=== PATIENT | male | born 1995 | race Caucasian/White ===

== ENCOUNTER → 2016-08-23 | Day surgery (SDC) | payer OTHER, BC ==
[2016-07-28 14:24] VITALS: Ht 182.9 cm; Wt 109.1 kg
[~2016-08-23] VITALS: Ht 182.9 cm; Wt 109.1 kg
[~2016-08-23] MED LIST: FENTANYL CITRATE INJ 50 MCG/1 ML 2 ML VIAL ONE; MIDAZOLAM HCL 5 MG/ML 1 ML VIAL ONE; SODIUM CHLORIDE 0.9% 500ML 500 ML IV ONE; VALA500T60 PO
--- NOTE | 2016-08-23 15:08 | Endo History and Physical ---
History & Physical Date of Service: Aug 23, 2016. Chief Complaint: Change in bowel habits Referring Physician: [facility] History of Present Illness 21 yo CM who presents for colonoscopy secondary to change in bowel habits. Past Surgical History Hx Cardiac Surgery: No Hx Internal Defibrillator: No Hx Pacemaker: No Hx Abdominal Surgery: No Hx of Implantable Prosthesis: No Hx Post-Op Nausea and Vomiting: No Hx Cancer Surgery: No Hx Thoracic Surgery: No Hx Orthopedic: No Hx Urinary Tract Surgery: No Family History None Social History Smoking Status: Current Some Day Smoker Hx Substance Use: Yes (MARIJUANA OCCASIONALLY) Hx Alcohol Use: Yes (OCCASIONALLY) Allergies Coded Allergies: NO KNOWN DRUG ALLERGIES (Verified Allergy, Unknown, ., 07/28/16) Current Medications Reported Home Medications Medications Dose Route/Sig Max Daily Dose Days Date Category Valtrex (Valacyclovir HCl) 500 Mg Tab 500 Mg PO BID 08/23/16 Reported Vital Signs Weight (Kilograms): 109.09 Height (Feet): 6 Height (Inches): 0 Date Time Temp Pulse Resp B/P Pulse Ox O2 Delivery O2 Flow Rate FiO2 08/23/16 14:49 36.8 79 18 164/90 99 Room Air Physical Exam General Appearance: WD/WN, no apparent distress Respiratory/Chest: Auscultation: breath sounds normal Cardiovascular: Heart Auscultation: RRR Abdomen: Bowel Sounds: normal Inspection & Palpation: soft, non-distended, no tenderness, guarding & rebound Assessment and Plan Assessment: 21 yo CM who presents for colonoscopy secondary to change in bowel habits. Plan: Proceed with colonoscopy.
--- NOTE | 2016-08-23 16:16 | Discharge Instructions ---
Endoscopy Patient Instructions Date / Procedure(s) Performed Aug 23, 2016. Colonoscopy Allergy Information Coded Allergies: NO KNOWN DRUG ALLERGIES (Verified Allergy, Unknown, ., 08/23/16) Discharge Date / Findings Aug 23, 2016. Rectal polyp Random colon biopsies Medication Instructions OK to resume all medications today as prescribed Reported Home Medications Medications Dose Route/Sig Max Daily Dose Days Date Category Valtrex (Valacyclovir HCl) 500 Mg Tab 500 Mg PO BID 08/23/16 Reported Provider Instructions Activity Restrictions - No exercising or heavy lifting for 24 hours. - Do not drink alcohol the day of the procedure. - Do not drive a car or operate machinery until the day after the procedure. - Do not make any important decisions or sign important papers in 24 hours after the procedure. Following Day: - Return to full activity which may include returning to work/school. Diet Start your diet with liquids and light foods (jello, soup, juice, toast). Then eat your usual diet if not nauseated. Treatment For Common After Affects For mild abdominal pain, bloating, or excessive gas: - Rest - Eat lightly - Lie on right side Follow-Up Information Follow-up with [facility] as scheduled Anesthesia Information What You Should Know You have had a procedure that required some medicine to reduce anxiety and discomfort. This treatment is called moderate sedation. After receiving the treatment, you may be sleepy, but you will be able to breathe on your own. The effects of the treatment may last for several hours. Follow these instructions along with Activity/Diet recommendations noted above: * Do NOT do anything where dizziness or clumsiness would be dangerous. * Rest quietly at home today, then you can be up and about tomorrow. * Have a responsible person stay with you the rest of today. * You may have had an I.V. today. If so, you may take the dressing off later today. Recommendations Call your doctor if: * Trouble breathing * Continuous vomiting for more than 24 hours * Temperature above 101 degrees * Severe abdominal pain or bloating * Pain not relieved by pain medicine ordered * There is increased drainage or redness from any incision * A large amount of rectal bleeding greater than 2-3 tablespoons. (If you had a polyp/s removed or have hemorrhoids, a small amount of blood - from the rectum is to be expected.) * You have any unanswered questions or concerns. IN THE EVENT OF A SERIOUS EMERGENCY, GO TO THE NEAREST EMERGENCY ROOM Your discharge instructions were prepared by provider Abdirashid Manning. Patient Instructions Signature Page Markus Wiggins Patient (or Guardian) Signature/Date: I have read and understand the instructions given to me by my caregivers. Caregiver/RN/Doctor Signature/Date: The above-named patient and/or guardian has received patient instructions on this date. + Original Patient Signature Page (only) stays with chart. Please make copy for patient.
--- NOTE | 2016-08-23 16:21 | GI REPORT ---
Procedure Date: 08/23/2016 3:27 PM Procedure: Colonoscopy Indications: Change in bowel habits Medicines: Fentanyl 100 micrograms IV, Midazolam 6 mg IV Complications: No immediate complications. Estimated Blood Loss: Estimated blood loss: none. Procedure: Pre-Anesthesia Assessment: - Prior to the procedure, a History and Physical was performed, and patient medications and allergies were reviewed. The patient's tolerance of previous anesthesia was also reviewed. The risks and benefits of the procedure and the sedation options and risks were discussed with the patient. All questions were answered, and informed consent was obtained. Prior Anticoagulants: The patient has taken no previous anticoagulant or antiplatelet agents. ASA Grade Assessment: II - A patient with mild systemic disease. After reviewing the risks and benefits, the patient was deemed in satisfactory condition to undergo the procedure. After I obtained informed consent, the scope was passed under direct vision. Throughout the procedure, the patient's blood pressure, pulse, and oxygen saturations were monitored continuously. The scope was introduced through the anus and advanced to the terminal ileum. The colonoscopy was performed without difficulty. The patient tolerated the procedure well. The quality of the bowel preparation was good. The terminal ileum, ileocecal valve, appendiceal orifice, and rectum were photographed. Findings: A 4 mm polyp was found in the rectum. The polyp was sessile. The polyp was removed with a cold snare. Resection and retrieval were complete. Several random biopsies were obtained with cold forceps for histology in the entire colon. Impression: - One 4 mm polyp in the rectum, removed with a cold snare. Resected and retrieved. - Several random biopsies were obtained in the entire colon. Recommendation: - Resume previous diet. - Continue present medications. - Repeat colonoscopy for surveillance based on pathology results. - Return to primary care physician as previously scheduled. Abdirashid Manning DO 08/23/2016 4:20:47 PM This report has been signed electronically. Note Initiated On: 08/23/2016 3:27 PM I attest to the content of the Intraoperative Record and orders documented therein, exceptions below
[2016-08-23 16:36] VITALS: BP 144/87; PULSE 73; O2SAT 95
== END | disposition home or self-care (01) ==
LOC: C.GI 14:35
PROVIDERS: ATTEND Internal Medicine
DX: K62.1 Rectal polyp (principal); F17.210 Nicotine dependence, cigarettes, uncomplicated; F12.90 Cannabis use, unspecified, uncomplicated; Z79.899 Other long term (current) drug therapy; R19.4 Change in bowel habit

== ENCOUNTER 2017-07-04 10:00 | Emergency (ER) | payer OTHER ==
[~2017-07-04] VITALS: Ht 182.9 cm; Wt 102.0 kg
[~2017-07-04 10:00] MED LIST changes: -FENTANYL CITRATE INJ 50 MCG/1 ML 2 ML VIAL ONE; -MIDAZOLAM HCL 5 MG/ML 1 ML VIAL ONE; -SODIUM CHLORIDE 0.9% 500ML 500 ML IV ONE
[2017-07-04 10:02] VITALS: Ht 182.9 cm; Wt 102.0 kg
[2017-07-04 10:26] VITALS: O2SAT 96
[2017-07-04] MEDS ORDERED: ACETAMINOPHEN 325 MG TAB PO STA (10:49)
[2017-07-04] MEDS ORDERED: SODIUM CHLORIDE 0.9% 1000ML 1,000 ML IV STA ×2 (10:49→13:56)
--- NOTE | 2017-07-04 11:09 | EMERGENCY ROOM VISIT NOTE ---
History Report prepared by [place]: Jaleel Lu Under the Supervision of: Dr. Fannie Farnswotrh M.D. First contact with patient: 10:18 Chief Complaint: FLU LIKE SX Stated Complaint: FLU,FEVER, NECK PAIN, TIGHTNESS IN CHEST History of Present Illness The patient is a 22 year old male who presents to the Emergency Room with complaints of intermittent flu like symptoms for the past 3 weeks. The patient states that for three weeks he is having intermittent shortness of breath when he wakes up as well as chest tightness as well as a pulse rate, and he states that it feels like a panic attack. He also notes that he has been having cyclical fevers, and it was 102 three weeks ago, and it was 100.9 this morning. A week ago he was diagnosed with the flu, and he was put on Tamiflu. He also notes that he had a chest x-ray and an EKG which were both normal. The patient reports that he had an abscess a few days ago, and he was put on doxycycline and Bactroban, and it was not drained. He states that he has been having some neck pain that does into his shoulder for the past two days, and at urgent care he was told that it was a neck spasm. The patient states that this morning he woke up with a fever of 100.9, short of breath, heart racing, and some chest pain with deep inspiration. He also notes that he vomited this morning, though he has been able to eat food afterwards. The patient states that he drove to [place] in June though no other travel, he has no family history of blood clots, and he does not take any hormones. The patient denies any urinary symptoms, diarrhea, rashes, runny nose, sore throat, ear pain, headache, numbness, and tingling. The patient currently states that he has been under a lot of stress recently with graduate school, and he notes that he is going to try to see a psychiatrist. He also reports that he has been having eye lid twitching for the past month. Source of History: patient Onset: 3 weeks Position: other (global) Quality: other (flu like symptoms) Timing: intermittent Associated Symptoms: + fevers, + neck pain, + chest pain, + SOB, + vomiting , No headache, No sorethroat, No diarrhea, No urinary symptoms, No numbness, No rash Review of Systems See HPI for pertinent positives & negatives. A total of 10 systems reviewed and were otherwise negative. Past Medical & Surgical Medical Problems: (1) High cholesterol Social History Smoking Status: Current Some Day Smoker Marital Status: single Occupation Status: [employer] student Current/Historical Medications Scheduled Cefdinir (Omnicef), 300 MG PO Q12H Doxycycline (Monohydrate) (Doxycycline), 1 CAP PO BID Mupirocin (Bactroban 2% Oint), 1 APPLN EXT UD Scheduled PRN Cyclobenzaprine Hcl (Flexeril), 10 MG PO TID PRN for Muscle Spasms Allergies Coded Allergies: NO KNOWN DRUG ALLERGIES (Verified Allergy, Unknown, ., 07/04/17) Physical Exam Vital Signs Date Time Temp Pulse Resp B/P (MAP) Pulse Ox O2 Delivery O2 Flow Rate FiO2 07/04/17 15:45 104 18 114/65 94 07/04/17 14:52 104 18 133/81 97 Room Air 07/04/17 14:07 109 07/04/17 12:30 37.6 109 20 106/78 98 Room Air 07/04/17 11:35 115 20 115/83 93 Room Air 07/04/17 10:26 96 Room Air 07/04/17 10:21 136 07/04/17 10:17 38.6 130 18 133/84 96 Room Air 07/04/17 10:02 37.3 157 16 142/90 95 Room Air Physical Exam Vital signs reviewed. General: Well-appearing male, in no significant distress. Noted to be febrile and tachycardic. HEENT: No scleral icterus, PERRLA, neck has slight discomfort with forward flexion of the neck. No clear meningismus. Atraumatic. Cardiovascular: tachycardic rate and regular rhythm, no extra sounds. Pulmonary: Clear to auscultation bilaterally, normal work of breathing. Abdomen: Mildly obese, non-tender. Musculoskeletal: Atraumatic, no peripheral edema. Neurologic: Patient awake alert and oriented x 3, full strength in all 4 extremities. Cranial nerves 2 through 12 grossly intact. Skin: Warm, dry, no rash Medical Decision & Procedures ER Provider Diagnostic Interpretation: Radiology results as stated below per my review and radiologist interpretation: CHEST 2 VIEWS ROUTINE CLINICAL HISTORY: Cough. Possible pneumonia COMPARISON STUDY: No previous studies for comparison. FINDINGS: The cardiac and mediastinal contours are normal. There is no evidence of focal pulmonary consolidation. There is no evidence of failure. No pleural effusions are visualized.[ IMPRESSION: No active disease in the chest. Electronically signed by: Adalberto Faust M.D. 07/04/2017 12:25 PM Dictated Date/Time: 07/04/2017 12:[address] SCAN OF THE BRAIN WITHOUT IV CONTRAST CLINICAL HISTORY: Headache. COMPARISON STUDY: No priors. TECHNIQUE: Unenhanced axial CT scan of the brain is performed from the vertex to the skull base. A dose lowering technique was utilized adhering to the principles of ALARA. CT DOSE: 537.48 mGy.cm FINDINGS: Brain parenchyma: The brain parenchyma is normal in appearance. There is no hemorrhage, mass effect, or evidence of acute territorial ischemia by CT criteria. Bernardo-white matter is preserved. No extra-axial fluid collection is seen. Ventricles, sulci, cisterns: Normal in configuration. Intracranial vasculature: The visualized intracranial vasculature at the skull base is normal in appearance. Calvarium: Unremarkable. Sinuses and mastoids: There is a tiny retention cyst in the right maxillary antrum. The visualized paranasal sinuses are clear. The mastoid air cells are well pneumatized. Orbits: The bony orbits are grossly intact. IMPRESSION: No acute intracranial abnormality. Electronically signed by: Jasen Cm M.D. 07/04/2017 1:13 PM Dictated Date/Time: 07/04/2017 1:[address] WITH CONTRAST CT DOSE: 665.43 mGycm HISTORY: Acute fever with tachycardia and leukocytosis fever, tachycardia, WBC TECHNIQUE: Multiaxial CT images of the chest were performed following the intravenous administration of contrast. A dose lowering technique was utilized adhering to the principles of ALARA. COMPARISON: Chest radiograph 07/04/2017. FINDINGS: Thyroid appears homogeneous. No pathologic adenopathy of the chest. Prominent 9 mm subcarinal lymph node is present. Residual thymic tissue of the anterior mediastinum. Heart is normal size without pericardial effusion. Thoracic aorta is normal in course and caliber without aneurysm or dissection. 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 The imaged great vessels appear to be patent. The opacified pulmonary arterial tree is unremarkable. There is no pneumothorax, pleural effusion or focal airspace consolidation. Ill-defined groundglass opacity of the superior segment left lower lobe suggest atelectasis. No suspicious pulmonary nodules or masses. 5 mm. Fissural lymph node is seen adjacent to the right middle lobe. Central airways are patent. Spleen is mildly enlarged, 14 cm in length which is only partially imaged. Mild bilateral gynecomastia. Bones appear intact. IMPRESSION: 1. No acute intrathoracic abnormality identified. No lobar airspace consolidation to suggest pneumonia. 2. Mildly prominent nonenlarged AP window and subcarinal lymph nodes may be reactive. 3. Mild splenomegaly. Electronically signed by: Chad Blank M.D. 07/04/2017 2:43 PM Dictated Date/Time: 07/04/2017 2:38 PM Laboratory Results 07/04/17 11:05 Red Blood Count 5.42, Mean Corpuscular Volume 80.4, Mean Corpuscular Hemoglobin 28.8, Mean Corpuscular Hemoglobin Concent 35.8, Mean Platelet Volume 10.1, Neutrophils (%) (Auto) 87.8, Lymphocytes (%) (Auto) 4.4, Monocytes (%) (Auto) 6.6, Eosinophils (%) (Auto) 0.1, Basophils (%) (Auto) 0.2, Neutrophils # (Auto) 19.54, Lymphocytes # (Auto) 0.97, Monocytes # (Auto) 1.46, Eosinophils # (Auto) 0.02, Basophils # (Auto) 0.04 07/04/17 11:05 Test 07/04/17 11:05 07/04/17 11:23 07/04/17 13:25 07/04/17 13:45 White Blood Count 22.24 K/uL (4.8-10.8) Red Blood Count 5.42 M/uL (4.7-6.1) Hemoglobin 15.6 g/dL (14.0-18.0) Hematocrit 43.6 % (42-52) Mean Corpuscular Volume 80.4 fL (80-100) Mean Corpuscular Hemoglobin 28.8 pg (25-34) Mean Corpuscular Hemoglobin Concent 35.8 g/dl (32-36) Platelet Count 325 K/uL (130-400) Mean Platelet Volume 10.1 fL (7.4-10.4) Neutrophils (%) (Auto) 87.8 % Lymphocytes (%) (Auto) 4.4 % Monocytes (%) (Auto) 6.6 % Eosinophils (%) (Auto) 0.1 % Basophils (%) (Auto) 0.2 % Neutrophils # (Auto) 19.54 K/uL (1.4-6.5) Lymphocytes # (Auto) 0.97 K/uL (1.2-3.4) Monocytes # (Auto) 1.46 K/uL (0.11-0.59) Eosinophils # (Auto) 0.02 K/uL (0-0.5) Basophils # (Auto) 0.04 K/uL (0-0.2) RDW Standard Deviation 37.7 fL (36.4-46.3) RDW Coefficient of Variation 13.0 % (11.5-14.5) Immature Granulocyte % (Auto) 0.9 % Immature Granulocyte # (Auto) 0.21 K/uL (0.00-0.02) Anion Gap 7.0 mmol/L (3-11) Est Creatinine Clear Calc Drug Dose 116.4 ml/min Estimated GFR () 96.3 Estimated GFR (Non- 83.1 BUN/Creatinine Ratio 11.3 (10-20) Calcium Level 9.8 mg/dl (8.5-10.1) Total Bilirubin 0.8 mg/dl (0.2-1) Direct Bilirubin 0.1 mg/dl (0-0.2) Aspartate Amino Transf (AST/SGOT) 16 U/L (15-37) Alanine Aminotransferase (ALT/SGPT) 33 U/L (12-78) Alkaline Phosphatase 70 U/L (45-117) Total Protein 8.0 gm/dl (6.4-8.2) Albumin 4.5 gm/dl (3.4-5.0) Bedside D-Dimer 182 ng/mlFEU (0-450) Bedside Troponin I < 0.030 ng/ml (0-0.045) Lyme Disease IgG Antibody NEG (NEG) Lyme Disease IgM Antibody NEG (NEG) Monoscreen NEG (NEG) CSF Color COLORLESS CSF Appearance CLEAR CSF WBC 0 /uL (0-5) CSF RBC 1 /uL (0) CSF Xanthrochromic NO XANTHOCHROMIA CSF Cell Count Tube # 4 CSF Chemistry Tube # 2 CSF Glucose 59 mg/dl (40-70) CSF Total Protein 49.6 mg/dl (15.0-45.0) Test 07/04/17 14:22 Urine Color YELLOW Urine Appearance CLEAR (CLEAR) Urine pH 5.5 (4.5-7.5) Urine Specific [place] 1.012 (1.000-1.030) Urine Protein NEG (NEG) Urine Glucose (UA) NEG (NEG) Urine Ketones NEG (NEG) Urine Occult Blood NEG (NEG) Urine Nitrite NEG (NEG) Urine Bilirubin NEG (NEG) Urine Urobilinogen NEG (NEG) Urine Leukocyte Esterase NEG (NEG) Laboratory results per my review. Medications Administered Medications (Trade) Dose Ordered Sig/Sharon Route Start Time Stop Time Status Last Admin Dose Admin Sodium Chloride 1,000 ml @ 999 mls/hr Q1H1M STAT IV 07/04/17 10:49 07/04/17 11:49 DC 07/04/17 10:49 999 MLS/HR Acetaminophen (Tylenol Tab) 650 mg NOW STAT PO 07/04/17 10:49 07/04/17 10:52 DC 07/04/17 11:33 650 MG Sodium Chloride 1,000 ml @ 999 mls/hr Q1H1M STAT IV 07/04/17 13:56 07/04/17 14:56 DC 07/04/17 13:56 999 MLS/HR Ceftriaxone Sodium (Rocephin Inj) 1 gm NOW STAT IV 07/04/17 14:46 07/04/17 14:47 DC 07/04/17 14:46 1 GM Procedure Lumbar Puncture Indication: fever and neck pain. Verbal consent was obtained after the risks and benefits were explained, including but not limited to headache, bleeding/clotting, scarring, infection, pain, and bone/joint/nerve damage. At this time, the risks of the procedure are less than the risks of NOT performing the procedure. A time out was taken and the correct patient and site identified. The patient was placed in the left lateral decubitus position and the back was prepped with betadine and draped in the standard fashion. The L3 intervertebral space was identified, anesthetized locally with 1% lidocaine without epinephrine, and the spinal needle was inserted through the skin with the bevel parallel to the dural fibers. The needle was carefully advanced into the lumbar cistern and 4 tubes of clear CSF was obtained. The stylet was replaced and the needle was removed. A bandaid was placed and the patient was placed in the supine position. The patient tolerated the procedure well and there were no complications. 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 The patient was evaluated in room B9. A complete history and physical examination was performed. 1049: Tylenol 650mg PO, Sodium Chloride 1000 ml @ 999 mls/hr IV 1356: Sodium Chloride 1000 ml @ 999 mls/hr IV 1406: I reevaluated the patient, and I performed a lumbar puncture as described above. 1413: Toradol 30mg IV 1446: Rocephin 1gm IV 1456: Upon reevaluation, the patient appeared to have improvement of his symptoms. I discussed findings with him. He verbalized agreement of the treatment plan. He was discharged home. Medical Decision Differential Diagnoses: PE, Influenza, other viral illness, pneumonia, urinary tract infection, metabolic abnormality, medication effect, cellulitis, meningitis, intra- abdominal source. This patient was evaluated and appeared to be in no significant distress. Physical examination is fairly unrevealing. The patient does have some mild discomfort with forward flexion of the neck. The course of the recent illnesses somewhat unclear. Patient states he started with fevers 2-3 weeks ago. He has been treated for influenza B one week ago. IV access was obtained , blood cultures were drawn. The patient was hydrated with normal saline solution. Chest x-ray was obtained and is clear. Laboratory work reveals a leukocytosis with neutrophil predominance. Patient's d-dimer is negative. Head CT was performed and is negative. Subsequent lumbar puncture was performed and is negative. Given the patient's tachycardia and fever 1 week after diagnosis of influenza, a CT scan of the chest was performed and is negative for any pulmonary infiltrate. At this time the etiology of the cyclical fevers is unclear. He has been on doxycycline for a small pustule on the leg but does not appear to be acutely infected. Given the leukocytosis and neutrophilia, the patient was medicated with IV ceftriaxone. Patient was given a prescription for Omnicef 300 mg twice daily for 10 days. He will follow-up with nightly the next 24-48 hours for reevaluation and return to the ER for worsening symptoms or any medical concerns. Medication Reconcilliation Current Medication List: was personally reviewed by me Blood Pressure Screening Patient's blood pressure: Normal blood pressure Impression Primary Impression: Influenza B Additional Impressions: Fever Leukocytosis Tachycardia Scribe Attestation The scribe's documentation has been prepared under my direction and personally reviewed by me in its entirety. I confirm that the note above accurately reflects all work, treatment, procedures, and medical decision making performed by me. Departure Information Dispostion Home / Self-Care Prescriptions Cefdinir (Omnicef) 300 Mg Cap 300 MG PO Q12H for 7 Days, #14 CAP Prov: Fannie Farnsworth M.D. 07/04/17 Referrals No Doctor, Assigned (PCP) Forms HOME CARE DOCUMENTATION FORM, IMPORTANT VISIT INFORMATION Patient Instructions [facility] Additional Instructions Diagnosis: Leukocytosis, fever, influenza B Drink plenty of clear fluids. Tylenol 650 mg every 6 hours as needed for pain or fever. Ibuprofen 600 mg every 6 hours as needed for pain or fever. Omnicef 300 mg twice daily for 7 days. Follow-up with [facility] in 24-48 hours for reevaluation. Return to the ER for worsening of symptoms or any medical concerns. Problem Qualifiers
[2017-07-04] MEDS ORDERED: CYCL10TA6 PO (11:27)
[2017-07-04] MEDS ORDERED: DOXY-300 PO (11:27)
[2017-07-04] MEDS ORDERED: BCTROWC EXT (11:27)
[2017-07-04 11:44] LABS: BASO % 0.2 %; BASO ABS # 0.04 K/uL (0-0.2); EOS % 0.1 %; EOS ABS # 0.02 K/uL (0-0.5); HEMATOCRIT 43.6 % (42-52); HEMOGLOBIN 15.6 g/dL (14.0-18.0); IG# 0.21 K/uL (0.00-0.02); LYMPH % 4.4 %; LYMPH ABS # 0.97 K/uL (1.2-3.4); MEAN CELL VOLUME 80.4 fL (80-100); MEAN CORPUSCULAR HEMOGLOBIN 28.8 pg (25-34); MEAN CORPUSCULAR HGB CONC 35.8 g/dl (32-36); MEAN PLATELET VOLUME 10.1 fL (7.4-10.4); MONO % 6.6 %; MONO ABS # 1.46 K/uL (0.11-0.59); NEUT % 87.8 %; NEUT ABS # 19.54 K/uL (1.4-6.5); PLATELET COUNT 325 K/uL (130-400); RED CELL DISTRIBUTION WIDTH SD 37.7 fL (36.4-46.3); WHITE BLOOD COUNT 22.24 K/uL (4.8-10.8)
[2017-07-04 12:00] LABS: ALBUMIN 4.5 gm/dl (3.4-5.0); CALCIUM 9.8 mg/dl (8.5-10.1); CREATININE 1.22 mg/dl (0.60-1.40)
--- NOTE | 2017-07-04 12:26 | DIAGNOSTIC IMAGING REPORT ---
CHEST 2 VIEWS ROUTINE CLINICAL HISTORY: Cough. Possible pneumonia COMPARISON STUDY: No previous studies for comparison. FINDINGS: The cardiac and mediastinal contours are normal. There is no evidence of focal pulmonary consolidation. There is no evidence of failure. No pleural effusions are visualized.[ IMPRESSION: No active disease in the chest. Electronically signed by: Adalberto Faust M.D. 07/04/2017 12:25 PM Dictated Date/Time: 07/04/2017 12:25 PM
[2017-07-04 12:30] VITALS: TEMP 37.6
--- NOTE | 2017-07-04 13:14 | DIAGNOSTIC IMAGING REPORT ---
CT SCAN OF THE BRAIN WITHOUT IV CONTRAST CLINICAL HISTORY: Headache. COMPARISON STUDY: No priors. TECHNIQUE: Unenhanced axial CT scan of the brain is performed from the vertex to the skull base. A dose lowering technique was utilized adhering to the principles of ALARA. CT DOSE: 537.48 mGy.cm FINDINGS: Brain parenchyma: The brain parenchyma is normal in appearance. There is no hemorrhage, mass effect, or evidence of acute territorial ischemia by CT criteria. Bernardo-white matter is preserved. No extra-axial fluid collection is seen. Ventricles, sulci, cisterns: Normal in configuration. Intracranial vasculature: The visualized intracranial vasculature at the skull base is normal in appearance. Calvarium: Unremarkable. Sinuses and mastoids: There is a tiny retention cyst in the right maxillary antrum. The visualized paranasal sinuses are clear. The mastoid air cells are well pneumatized. Orbits: The bony orbits are grossly intact. IMPRESSION: No acute intracranial abnormality. Electronically signed by: Jasen Cm M.D. 07/04/2017 1:13 PM Dictated Date/Time: 07/04/2017 1:11 PM
[2017-07-04 14:00] LABS: MONOSPOT NEG (NEG)
[2017-07-04] MEDS ORDERED: KETOROLAC TROMETHAMINE 30 MG/ML VIAL IV STA (14:13)
[2017-07-04 14:25] LABS: CSF GLUCOSE 59 mg/dl (40-70); CSF TOTAL PROTEIN 49.6 mg/dl (15.0-45.0)
[2017-07-04] MEDS ORDERED: OPTIRAY 320 IV PRN (14:30)
--- NOTE | 2017-07-04 14:44 | DIAGNOSTIC IMAGING REPORT ---
CHEST CT WITH CONTRAST CT DOSE: 665.43 mGycm HISTORY: Acute fever with tachycardia and leukocytosis fever, tachycardia, WBC TECHNIQUE: Multiaxial CT images of the chest were performed following the intravenous administration of contrast. A dose lowering technique was utilized adhering to the principles of ALARA. COMPARISON: Chest radiograph 07/04/2017. FINDINGS: Thyroid appears homogeneous. No pathologic adenopathy of the chest. Prominent 9 mm subcarinal lymph node is present. Residual thymic tissue of the anterior mediastinum. Heart is normal size without pericardial effusion. Thoracic aorta is normal in course and caliber without aneurysm or dissection. 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 The imaged great vessels appear to be patent. The opacified pulmonary arterial tree is unremarkable. There is no pneumothorax, pleural effusion or focal airspace consolidation. Ill-defined groundglass opacity of the superior segment left lower lobe suggest atelectasis. No suspicious pulmonary nodules or masses. 5 mm. Fissural lymph node is seen adjacent to the right middle lobe. Central airways are patent. Spleen is mildly enlarged, 14 cm in length which is only partially imaged. Mild bilateral gynecomastia. Bones appear intact. IMPRESSION: 1. No acute intrathoracic abnormality identified. No lobar airspace consolidation to suggest pneumonia. 2. Mildly prominent nonenlarged AP window and subcarinal lymph nodes may be reactive. 3. Mild splenomegaly. Electronically signed by: Chad Blank M.D. 07/04/2017 2:43 PM Dictated Date/Time: 07/04/2017 2:38 PM
[2017-07-04] MEDS ORDERED: CEFTRIAXONE SOD INJ 1 GM ADDVIAL IV STA (14:46)
[2017-07-04] MEDS ORDERED: CEFD1CAP14 PO (14:55)
[2017-07-04 15:45] VITALS: BP 114/65; PULSE 104; O2SAT 94
== END 2017-07-04 15:47 | disposition home or self-care (01) ==
LOC: C.EDB 10:02
DX: J10.1 Influenza due to other identified influenza virus with other respiratory manifestations (principal); R50.9 Fever, unspecified; D72.829 Elevated white blood cell count, unspecified; R00.0 Tachycardia, unspecified; M54.2 Cervicalgia; F17.200 Nicotine dependence, unspecified, uncomplicated

== ENCOUNTER → 2017-07-07 | Outpatient (CLI) | payer OTHER ==
[~2017-07-07] MED LIST changes: +BCTROWC EXT; +CEFD1CAP14 PO; +CYCL10TA6 PO; +DOXY-300 PO; -VALA500T60 PO
--- NOTE | 2017-07-07 17:55 | ECHOCARDIOGRAM REPORT ---
*NOTICE TO RECEIVING [employer] This information is strictly Confidential and protected under [place] law. [place] law prohibits you from making any further disclosure of this information unless further disclosure is expressly permitted by the written consent of the person to whom it pertains or is authorized by law. A general authorization for the release of medical or other information is not sufficient for this purpose. Hospital accepts no responsibility if the information is made available to any other person, INCLUDING THE PATIENT. Interpretation Summary * Name: PATRIZIA HAGEN Study Date: 07/07/2017 02:00 PM * Patient Location: [facility] HR: 103 * : 1995 (M/d/yyyy) Gender: Male Height: 72 in * Age: 22 yrs Ethnicity: CA Weight: 225 lb * Ordering Physician: Cali Almonte * Referring Physician: Cali Almonte * Performed By: Angela Garcia RDCS * * Reason For Study: Chest pain, fever * BSA: 2.2 m2 * -- Conclusions -- * 1. Normal LV size. Normal LV wall thickness. * 2. Normal LV systolic function. LVEF 60-65%. No regional wall motion abnormalities. * 3. Normal RV size and function. * 4. No significant valvular pathology. * 5. No prior studies for comparison. Procedure Details * A complete two-dimensional transthoracic echocardiogram was performed (2D, M-mode, Doppler and color flow Doppler). Left Ventricle * The left ventricle is grossly normal size. * There is normal left ventricular wall thickness. * Ejection Fraction = 60-65%. * No regional wall motion abnormalities noted. Right Ventricle * The right ventricle is grossly normal size. * The right ventricular systolic function is normal as assessed by tricuspid annular plane systolic excursion (TAPSE) (normal >1.5 cm). Atria * The left atrial size is normal. * Right atrial size is normal. * No ASD detected; PFO is not assessed. Mitral Valve * The mitral valve is grossly normal. * There is no mitral valve stenosis. * Significant mitral regurgitation is absent. Tricuspid Valve * The tricuspid valve is not well visualized, but is grossly normal. * There is no tricuspid stenosis. * Significant tricuspid regurgitation is absent. Aortic Valve * The aortic valve opens well. * The aortic valve is trileaflet. * No hemodynamically significant valvular aortic stenosis. * There is no significant aortic regurgitation. Pulmonic Valve * The pulmonary valve is inadequately visualized, but the Doppler data is adequate for interpretation. * Pulmonic stenosis is absent. * There is no significant pulmonary regurgitation. Great Vessels * The aortic root and proximal ascending aorta are normal sized. Pericardium/Pleural * There is no pericardial effusion. Great Vessels * Normal inferior vena cava size and collapsability with sniff indicates a normal right atrial pressure of 3 mmHg MMode 2D Measurements and Calculations IVSd 0.81 cm LVIDd 4.2 cm LVIDs 2.7 cm LVPWd 1.4 cm IVS/LVPW 0.58 FS 35.5 % EDV(Teich) 76.7 ml ESV(Teich) 26.5 ml EF(Teich) 65.4 % EDV(cubed) 71.9 ml ESV(cubed) 19.3 ml EF(cubed) 73.2 % LV mass(C)d 154.0 grams LV mass(C)dI 68.8 grams/m\S\2 SV(Teich) 50.2 ml SI(Teich) 22.4 ml/m\S\2 SV(cubed) 52.6 ml SI(cubed) 23.5 ml/m\S\2 Ao root diam 2.8 cm Ao root area 6.0 cm\S\2 ACS 2.2 cm LA dimension 3.0 cm asc Aorta Diam 2.6 cm LA/Ao 1.1 LVOT diam 2.0 cm LVOT area 3.2 cm\S\2 LVAd ap4 33.3 cm\S\2 LVLd ap4 8.4 cm EDV(MOD-sp4) 108.0 ml EDV(sp4-el) 112.3 ml LVAs ap4 19.4 cm\S\2 LVLs ap4 7.0 cm ESV(MOD-sp4) 43.2 ml ESV(sp4-el) 45.5 ml EF(MOD-sp4) 60.0 % EF(sp4-el) 59.5 % LVAd ap2 24.9 cm\S\2 LVLd ap2 8.2 cm EDV(MOD-sp2) 64.2 ml EDV(sp2-el) 64.4 ml LVAs ap2 12.5 cm\S\2 LVLs ap2 6.6 cm ESV(MOD-sp2) 21.7 ml ESV(sp2-el) 20.0 ml EF(MOD-sp2) 66.1 % EF(sp2-el) 68.9 % LVLd %diff -2.57 % EDV(MOD-bp) 83.2 ml LVLs %diff -7.05 % ESV(MOD-bp) 30.2 ml EF(MOD-bp) 63.7 % SV(MOD-sp4) 64.8 ml SI(MOD-sp4) 28.9 ml/m\S\2 SV(MOD-sp2) 42.5 ml SI(MOD-sp2) 19.0 ml/m\S\2 SV(MOD-bp) 53.0 ml SI(MOD-bp) 23.7 ml/m\S\2 SV(sp4-el) 66.8 ml SI(sp4-el) 29.8 ml/m\S\2 SV(sp2-el) 44.4 ml SI(sp2-el) 19.8 ml/m\S\2 Doppler Measurements and Calculations MV E max ashley 73.7 cm/sec MV A max ashley 65.0 cm/sec MV E/A 1.1 MV dec time 0.16 sec Ao V2 max 136.5 cm/sec Ao max PG 7.5 mmHg Ao max PG (full) 2.8 mmHg DUNCAN(V,A) 2.5 cm\S\2 DUNCAN(V,D) 2.5 cm\S\2 LV V1 max PG 4.6 mmHg LV V1 max 107.7 cm/sec PA V2 max 96.4 cm/sec PA max PG 3.7 mmHg PA acc slope 810.3 cm/sec\S\2 PA acc time 0.12 sec PA pr(Accel) 25.1 mmHg
== END | disposition home or self-care (01) ==
LOC: C.CPL 13:43
PROVIDERS: ATTEND Emergency Medicine
DX: R07.9 Chest pain, unspecified (principal); R50.9 Fever, unspecified